=== PATIENT | male | born 1940 | race Caucasian/White ===

== ENCOUNTER → 2020-05-24 | Outpatient (CLI) | payer MEDICARE ==
--- NOTE | 2020-05-24 14:34 | Diagnostic Imaging Report ---
INDICATION: Low back pain and previous back surgery. Time of exam 1:58 PM No prior studies are available for comparison. There are postoperative changes posterior instrumented fusion with vertical stabilization rods and pedicle screws transfixing L4-L5 level. Hardware appears intact. No definite motion during flexion or extension maneuvers is identified. Vertebral body heights are maintained. No acute compression fracture is seen. There is degenerative disc disease with disc space narrowing at the L3-L4 level. Pain pump does obscure portions of the lumbar spine. IMPRESSION: Postoperative changes lower lumbar posterior fixation. No abnormal motion during flexion or extension maneuvers is identified. Dictated by: Dictated on workstation # [id number]
== END ==
LOC: RAD FS 13:48
PROVIDERS: ATTEND Orthopaedic Surgery
DX: M47.26 Other spondylosis with radiculopathy, lumbar region (principal); Z98.1 Arthrodesis status
CPT/HCPCS: 72110

== ENCOUNTER → 2020-10-24 | Outpatient (CLI) | payer MEDICARE ==
--- NOTE | 2020-10-24 13:12 | Diagnostic Imaging Report ---
EXAMINATION: Lumbar spine at 11:33 a.m. INDICATION: Back pain. AP, lateral and spot lateral views were obtained. In the interval since the prior exam of 05/24/2020 the fusion of L4 and L5 has been extended to include L3. The orthopedic hardware appears to be in good position. There is perhaps slightly greater narrowing of the disc space at the L3-L4 level than noted on the prior exam and vacuum disc formation is now evident. There is no fracture or acute bony abnormality appreciated. There is no sign of a paraspinal mass. There is mild symmetrical sclerosis of the sacroiliac joints. IMPRESSION: 1. In the interval since the prior exam the patient has undergone a surgical procedure. There are now bilateral pedicle screws in place at L3, L4 and L5. The orthopedic hardware seems to be in good position. 2. The degenerative disc disease of the L3-L4 level has progressed somewhat since the prior exam. 3. There is no acute bony abnormality noted. 4. If clinical concern regarding an underlying abnormality persists, then CT of the lumbar spine would be recommended for further study. The patient does have some type of neurostimulator battery pack present and this would preclude further evaluation by MRI. Dictated by: Dictated on workstation # [id number]
== END ==
LOC: RAD FS 11:08
PROVIDERS: ATTEND Orthopaedic Surgery
DX: M51.16 Intervertebral disc disorders with radiculopathy, lumbar region (principal); M47.26 Other spondylosis with radiculopathy, lumbar region
CPT/HCPCS: 72100